=== PATIENT | female | born 1980 | race Caucasian/White ===

== ENCOUNTER 2017-06-01 09:52 | Emergency (ER) | payer OTHER ==
[2017-06-01 09:57] VITALS: TEMP 97.9
[2017-06-01] MEDS ORDERED: Oxycodone/Acetaminophen 5/325 mg Tab PO STA (10:41)
[2017-06-01] MEDS ORDERED: Oxycodone/Acetaminophen 5/325 mg Tab ONE (11:03)
--- NOTE | 2017-06-01 11:34 | C.PDOC ---
History Of Present Illness 37 year old female presents to the ED for evaluation of left-sided lower back pain which began around 4 days ago. Patient describes her pain as a "shooting" sensation that radiates down her left leg. Patient reports that she took Ibuprofen yesterday without significant relief. Patient denies fever, chills, urinary/bowel incontinence, upper/lower extremity numbness/weakness, recent injury/trauma to the affected area, or recent heavy lifting. Chief Complaint (Nursing): Back Pain History Per: Patient History/Exam Limitations: no limitations Onset/Duration Of Symptoms: Days (4) Current Symptoms Are (Timing): Still Present Quality Of Discomfort: "Pain", Other (shooting ) Previous Symptoms: Back Pain Associated Symptoms: denies: Incontinence, New Weakness, New Numbness Additional History Per: Patient Past Medical History Reviewed: Historical Data, Nursing Documentation, Vital Signs Vital Signs: Last Vital Signs Temp 97.9 F 06/01/17 09:56 Pulse 72 06/01/17 12:37 Resp 18 06/01/17 12:37 BP 132/75 06/01/17 12:37 Pulse Ox 95 06/01/17 15:39 - Medical History PMH: Asthma Surgical History: No Surg Hx Family History: States: Unknown Family Hx - Social History Hx Alcohol Use: No Hx Substance Use: No - Immunization History Hx Tetanus Toxoid Vaccination: Yes Hx Influenza Vaccination: No Hx Pneumococcal Vaccination: No Review Of Systems Constitutional: Negative for: Fever, Chills Genitourinary: Negative for: Incontinence Musculoskeletal: Positive for: Back Pain (left-sided, lower), Leg Pain (left) Neurological: Negative for: Weakness, Numbness Physical Exam - Physical Exam Appears: Non-toxic, No Acute Distress Skin: Normal Color, Warm, Dry Head: Atraumatic, Normacephalic Eye(s): bilateral: Normal Inspection Oral Mucosa: Moist Neck: Supple Chest: Symmetrical, No Deformity Cardiovascular: Rhythm Regular, No Murmur Respiratory: Normal Breath Sounds Back: Other (left lateral tenderness ) Extremity: Normal ROM, Tenderness (left posterior leg ), No Calf Tenderness, Capillary Refill (less than 2 seconds ), No Swelling Neurological/Psych: Oriented x3, Normal Speech, Normal Cognition Gait: Steady ED Course And Treatment O2 Sat by Pulse Oximetry: 95 (on RA) Pulse Ox Interpretation: Normal - Other Rad LS Spine AP/LAT X-Ray: Interpreted by Me, Viewed By Me, Read By Radiologist Interpretation: PROCEDURE: Radiographs of the Lumbar Spine. HISTORY: left sciatica. COMPARISON: None available. FINDINGS: BONES: Alignment appears satisfactory. No listhesis. No acute displaced fracture identified. Mild degenerative changes including small anterior osteophyte formation. DISC SPACES : Intervertebral disc space narrowing at L5-S1. OTHER FINDINGS: None. IMPRESSION: No acute displaced fracture or dislocation identified. Degenerative changes. Progress Note: LS Spine AP/LAT ordered. Results show evidence of degenerate changes but no acute displaced fracture or dislocation. Patient received Percocet PO, Toradol IM, and Valium PO. On reassessment, patient is resting comfortably, showing no signs of distress and reports an improvment in her symptoms. Patient is ambulatory in the ED and is stable for discharge. Patient is advised to follow up with her PMD within 1-2 days for further evaluation. Reassessment Condition: Improved Disposition - Disposition Disposition: HOME/ ROUTINE Disposition Time: 12:17 Condition: STABLE Additional Instructions: Follow up with PMD within 1-2 days. Return to ED if feel worse. Prescriptions: Ibuprofen [Motrin Tab] 600 mg PO Q8 #30 tab predniSONE [predniSONE Tab] 2 tab PO DAILY #8 tab traMADol [Ultram] 50 mg PO Q6 #20 tab diaZEpam [Valium] 2 mg PO TID #15 tab Instructions: Sciatica (ED) Forms: [facility] ([place]), Work Excuse - Clinical Impression Clinical Impression: Sciatica - PA / [employer] / Resident Statement MD/DO has reviewed & agrees with the documentation as recorded. - Scribe Statement The provider has reviewed the documentation as recorded by the Scribe (Payal Pratt) All medical record entries made by the Scribe were at my direction and personally dictated by me. I have reviewed the chart and agree that the record accurately reflects my personal performance of the history, physical exam, medical decision making, and the department course for this patient. I have also personally directed, reviewed, and agree with the discharge instructions and disposition.
[2017-06-01 12:37] VITALS: BP 132/75; PULSE 72; RESP 18
--- NOTE | 2017-06-01 13:58 | RAD ---
PROCEDURE: Radiographs of the Lumbar Spine. HISTORY: left sciatica COMPARISON: None available. FINDINGS: BONES: Alignment appears satisfactory. No listhesis. No acute displaced fracture identified. Mild degenerative changes including small anterior osteophyte formation. DISC SPACES: Intervertebral disc space narrowing at L5-S1. OTHER FINDINGS: None. IMPRESSION: No acute displaced fracture or dislocation identified. Degenerative changes.
[2017-06-01 15:33] VITALS: O2SAT 95
== END 2017-06-01 12:38 | disposition home or self-care (01) ==
LOC: C.ER 09:52
DX: M54.32 Sciatica, left side (principal)
CPT/HCPCS: 72100; 96372; 99283; J1885